=== PATIENT | male | born 1965 | race Caucasian/White ===

== ENCOUNTER 2017-04-09 13:33 | Inpatient (IN) | payer OTHER ==
[2017-04-09] MEDS ORDERED: ACETAMINOPHEN 500 MG TABLET (FP) PO ONE (14:45)
[2017-04-09] MEDS ORDERED: ACETAMINOPHEN 325 MG TABLET (FP) ONE ×2 (14:53→21:08)
[2017-04-09 15:06] LABS: URINE APPEARANCE SLCLOUDY; URINE BILIRUBIN NEGATIVE (NEGATIVE); URINE BLOOD 2+ (NEGATIVE); URINE COLOR YELLOW; URINE GLUCOSE (UA) NEGATIVE (NEGATIVE); URINE KETONE NEGATIVE (NEGATIVE); URINE NITRITE NEGATIVE (NEGATIVE); URINE PROTEIN NEGATIVE (NEGATIVE)
[2017-04-09 15:12] LABS: URINE MUCUS RARE; URINE RBC 6 /hpf (0-3); URINE WBC 36 /hpf (3-5)
[2017-04-09] MEDS ORDERED: SODIUM CHLORIDE 1,000 ML IV STA ×2 (16:09→17:41)
--- NOTE | 2017-04-09 16:22 | PDOC ---
History of Present Illness - General Chief Complaint: Pain, Acute Stated Complaint: FEVER, BODY ACHES Time Seen by Provider: 04/09/17 15:58 History Source: Patient - History of Present Illness Timing/Duration: other (yesterday) Associated Symptoms: reports: fever/chills, malaise, weakness. denies: chest pain, cough, nausea/vomiting, shortness of breath Past History - Past Medical History Allergies/Adverse Reactions: Allergies Allergy/AdvReac Type Severity Reaction Status Date / Time No Known Allergies Allergy Verified 04/09/17 13:41 Home Medications: Ambulatory Orders NK [No Known Home Medication] 04/09/17 COPD: No Other medical history: DENIES. - Suicide/Smoking/Psychosocial Hx Smoking History: Never smoked Review of Systems - Review of Systems Constitutional: Yes: Chills, Fever, Malaise Respiratory: No: Cough, Shortness of Breath Cardiac (ROS): No: Chest Pain ABD/GI: No: Nausea, Vomiting : Yes: Dysuria. No: Discharge, Flank Pain, Hematuria, Testicular Swelling, Testicular Pain *Physical Exam - Vital Signs Last Vital Signs Temp Pulse Resp BP Pulse Ox 102.3 F H 103 H 19 136/79 99 04/09/17 13:41 04/09/17 13:41 04/09/17 13:41 04/09/17 13:41 04/09/17 13:41 - Physical Exam Comments: 04/09/17 16:26 Ill soto, diaphoretic male General Appearance: Yes: Appropriately Dressed HEENT: positive: Normal Voice Neck: positive: Supple Respiratory/Chest: positive: Lungs Clear, Normal Breath Sounds, Respiratory Distress Cardiovascular: positive: Regular Rate, S1, S2 Gastrointestinal/Abdominal: positive: Soft. negative: Tender Male Genitalia: negative: testicular tenderness, testicular mass, epididymus tender Rectal Exam: positive: other (? enlarged, tender prostate) Musculoskeletal: negative: CVA Tenderness Integumentary: positive: Dry, Warm Neurologic: positive: Fully Oriented, Alert, Normal Mood/Affect ED Treatment Course - LABORATORY CBC & Chemistry Diagram: 04/09/17 16:11 04/09/17 16:11 - ADDITIONAL ORDERS Additional order review: Laboratory Results 04/09/17 14:50 Urine Color Yellow Urine Appearance Slcloudy Urine pH 5.0 Ur Specific [place] 1.018 Urine Protein Negative Urine Glucose (UA) Negative Urine Ketones Negative Urine Blood 2+ H Urine Nitrite Negative Urine Bilirubin Negative Urine Urobilinogen 2.0 Urine WBC (Auto) 36 Urine RBC (Auto) 6 Ur Epithelial Cells Rare Urine Mucus Rare 04/09/17 15:37 Influenza Types A,B Antigen (SHAAN) - Final Nasopharyngeal Swab - Final - RADIOLOGY Radiology Studies Ordered: Category Date Time Status CHEST PA & LAT [RAD] Stat Radiology 04/09/17 16:10 Ordered - Medications Given in the ED: ED Medications Discontinued Medications Generic Name Dose Route Start Last Admin Trade Name Mar PRN Reason Stop Dose Admin Acetaminophen 1,000 mg 04/09/17 14:45 04/09/17 14:55 Tylenol - PO 04/09/17 14:46 1,000 mg ONCE ONE Administration Medical Decision Making - Medical Decision Making 04/09/17 16:12 51-year-old male denies any past medical history here with malaise with subjective fever or chills, lower back pain with dysuria and possible rectal pain since yesterday. No cough, wheezing, shortness of breath, abdominal pain, change in bowel movements, hematuria, testicular pain/swelling, discharge, nausea or vomiting. No sick contacts or recent travel. See exam ?influenza vs uti/pyelo vs prostatitis, less likely PNA Febrile, tachy, diaphoretic and ill appearing w/ clear chest/lungs, benign abd and n/l genital exam w/ ?enlarged tender prostate on gentle exam c/f ?acute prostatitis -Tylenol -IVF -abx (will get cxs first) -influenza -labs -ua/cx -bld cx -anticipate admission 04/09/17 17:42 Given clinical picture and wbc of 20, will tx and admit for acute prostatitis. I contacted Dr Sterling and made MD aware of admission *DC/Admit/Observation/Transfer Diagnosis at time of Disposition: Acute prostatitis - Discharge Dispostion Condition at time of disposition: Fair Admit: Yes - Referrals - Patient Instructions - Post Discharge Activity
[2017-04-09] MEDS ORDERED: LEVOFLOXACIN 750 MG IVPB 750 MG/150 ML BAG IVPB ONE ×2 (16:30→16:36)
[2017-04-09 17:06] LABS: BASOPHIL 0.3 % (0-2.0); EOSINOPHIL 0.1 % (0-4.5); MCH 30.1 pg (25.7-33.7); MCHC 34.1 g/dl (32.0-35.9); MEAN CELL VOLUME 88.5 fl (80-96); MEAN PLT VOLUME 9.7 fl (7.5-11.1); NEUTROPHILS 85.7 % (42.8-82.8); PLATELET COUNT 188 K/MM3 (134-434); RDW 13.3 % (11.9-15.9); WHITE BLOOD COUNT 20.2 K/mm3 (4.0-10.0)
[2017-04-09 17:33] LABS: URINE LEUK ESTERASE 1+ (NEGATIVE)
[2017-04-09 17:38] LABS: ALBUMIN 3.7 g/dl (3.4-5.0); ANION GAP 11 (8-16); CO2 23 mmol/L (21-32); CREATININE 0.9 mg/dL (0.7-1.3); GLUCOSE,RANDOM 99 mg/dL (74-106); SGOT/AST 22 U/L (15-37)
[2017-04-09 18:14] LABS: ALK PHOS 94 U/L (45-117); SGPT/ALT 60 U/L (12-78); TOT PROT 7.4 g/dl (6.4-8.2)
[2017-04-09] MEDS ORDERED: IBUPROFEN 400 MG TABLET (FP) PO ONE ×2 (18:50→18:51)
--- NOTE | 2017-04-09 20:51 | HP ---
Admitting History and Physical - Primary Care Physician PCP: Alejandrina Sterling - Admission History of Present Illness: 51-year-old male denies any past medical history here with malaise with subjective fever or chills, lower back pain with dysuria and possible rectal pain since yesterday. No cough, wheezing, shortness of breath, abdominal pain, change in bowel movements, hematuria, testicular pain/swelling, discharge, nausea or vomiting. No sick contacts or recent travel. - Smoking History Smoking history: Never smoked Home Medications - Allergies Allergies/Adverse Reactions: Allergies Allergy/AdvReac Type Severity Reaction Status Date / Time No Known Allergies Allergy Verified 04/09/17 13:41 - Home Medications Home Medications: Ambulatory Orders NK [No Known Home Medication] 04/09/17 Physical Examination Vital Signs: Vital Signs Temperature 103.5 F H 04/09/17 18:48 Pulse Rate 87 04/09/17 16:58 Respiratory Rate 18 04/09/17 16:58 Blood Pressure 102/68 04/09/17 16:58 O2 Sat by Pulse Oximetry (%) 99 04/09/17 16:58 Constitutional: Yes: No Distress HENT: Yes: Atraumatic Neck: Yes: Supple Cardiovascular: Yes: Regular Rate and Rhythm Respiratory: Yes: CTA Bilaterally Gastrointestinal: Yes: Normal Bowel Sounds Extremities: Yes: WNL Neurological: Yes: Alert, Oriented Labs: CBC, BMP 04/09/17 16:11 04/09/17 16:11 Problem List - Problems (1) Acute prostatitis Assessment/Plan: iv abx cxs sent id consult Code(s): N41.0 - ACUTE PROSTATITIS Assessment/Plan Laboratory Tests 04/09/17 04/09/17 04/09/17 14:50 15:50 16:11 WBC 20.2 H RBC 4.71 Hgb 14.2 Hct 41.6 MCV 88.5 MCH 30.1 MCHC 34.1 RDW 13.3 Plt Count 188 MPV 9.7 Neutrophils % 85.7 H Lymphocytes % 8.4 Monocytes % 5.5 Eosinophils % 0.1 Basophils % 0.3 Sodium Potassium Chloride Carbon Dioxide Anion Gap BUN Creatinine Creat Clearance w eGFR Random Glucose Lactic Acid 1.1 Calcium Total Bilirubin AST ALT Alkaline Phosphatase Total Protein Albumin Urine Color Yellow Urine Appearance Slcloudy Urine pH 5.0 Ur Specific [place] 1.018 Urine Protein Negative Urine Glucose (UA) Negative Urine Ketones Negative Urine Blood 2+ H Urine Nitrite Negative Urine Bilirubin Negative Urine Urobilinogen 2.0 Ur Leukocyte Esterase 1+ H Urine WBC (Auto) 36 Urine RBC (Auto) 6 Ur Epithelial Cells Rare Urine Mucus Rare 04/09/17 16:11 WBC RBC Hgb Hct MCV MCH MCHC RDW Plt Count MPV Neutrophils % Lymphocytes % Monocytes % Eosinophils % Basophils % Sodium 136 Potassium 3.7 Chloride 102 Carbon Dioxide 23 Anion Gap 11 BUN 13 Creatinine 0.9 Creat Clearance w eGFR > 60 Random Glucose 99 Lactic Acid Calcium 9.0 Total Bilirubin 1.0 AST 22 ALT 60 Alkaline Phosphatase 94 Total Protein 7.4 Albumin 3.7 Urine Color Urine Appearance Urine pH Ur Specific [place] Urine Protein Urine Glucose (UA) Urine Ketones Urine Blood Urine Nitrite Urine Bilirubin Urine Urobilinogen Ur Leukocyte Esterase Urine WBC (Auto) Urine RBC (Auto) Ur Epithelial Cells Urine Mucus Active Medications Generic Name Dose Route Start Last Admin Trade Name Freq PRN Reason Stop Dose Admin Acetaminophen 650 mg 04/09/17 20:47 Tylenol - PO Q6H PRN FEVER OR PAIN Heparin Sodium (Porcine) 5,000 unit 04/09/17 22:00 Heparin - SQ BID [facility]ERMAINE
[2017-04-09] MEDS: ACETAMINOPHEN 325 MG TABLET (FP) PO PRN (21:10)
[2017-04-09] MEDS: HEPARIN NA (PORCINE) 5,000 UNITS/ML 1ML VIAL SQ SCH (23:38)
[2017-04-10 02:02] VITALS: BMI 25.4
[2017-04-10] MEDS: ACETAMINOPHEN 325 MG TABLET (FP) PO PRN ×3 (06:44→18:49)
[2017-04-10 07:39] LABS: BASOPHIL 0.2 % (0-2.0); EOSINOPHIL 0.5 % (0-4.5); MCH 29.8 pg (25.7-33.7); MCHC 33.4 g/dl (32.0-35.9); MEAN CELL VOLUME 89.2 fl (80-96); MEAN PLT VOLUME 9.4 fl (7.5-11.1); NEUTROPHILS 84.8 % (42.8-82.8); PLATELET COUNT 157 K/MM3 (134-434); RDW 13.8 % (11.9-15.9); WHITE BLOOD COUNT 15.3 K/mm3 (4.0-10.0)
[2017-04-10 08:13] LABS: ALBUMIN 2.8 g/dl (3.4-5.0); ALK PHOS 81 U/L (45-117); ANION GAP 6 (8-16); BILIRUBIN,TOTAL 0.8 mg/dL (0.2-1.0); CO2 24 mmol/L (21-32); CREATININE 0.7 mg/dL (0.7-1.3); GLUCOSE,RANDOM 104 mg/dL (74-106); SGOT/AST 17 U/L (15-37); SGPT/ALT 42 U/L (12-78); TOT PROT 6.2 g/dl (6.4-8.2)
[2017-04-10] MEDS ORDERED: FLU VACCINE QUAD 60 MCG/0.5 ML (MDV 17-18) IM ONE (09:00)
[2017-04-10] MEDS: LEVOFLOXACIN 500 MG IVPB 500 MG/100 ML BAG IVPB SCH (09:19)
[2017-04-10] MEDS: HEPARIN NA (PORCINE) 5,000 UNITS/ML 1ML VIAL SQ SCH ×2 (13:11→21:46)
[2017-04-10] MEDS: SODIUM CHLORIDE 1,000 ML IV SCH (13:30)
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
--- NOTE | 2017-04-10 21:18 | PN ---
Progress Note, Physician History of Present Illness: doing well - Current Medication List Current Medications: Active Medications Acetaminophen (Tylenol -) 650 mg PO Q6H PRN PRN Reason: FEVER OR PAIN Last Admin: 04/10/17 18:49 Dose: 650 mg Heparin Sodium (Porcine) (Heparin -) 5,000 unit SQ BID [facility] Last Admin: 04/10/17 13:11 Dose: 5,000 unit Levofloxacin (Levaquin 500 Mg Premixed Ivpb -) 500 mg in 100 mls @ 100 mls/hr IVPB DAILY@0800 [facility] Last Admin: 04/10/17 09:19 Dose: 100 mls/hr Sodium Chloride (Normal Saline -) 1,000 mls @ 75 mls/hr IV ASDIR [facility] Last Admin: 04/10/17 13:30 Dose: 75 mls/hr - Objective Vital Signs: Vital Signs Temperature 101 F H 04/10/17 18:00 Pulse Rate 77 04/10/17 18:00 Respiratory Rate 20 04/10/17 18:00 Blood Pressure 116/50 04/10/17 18:00 O2 Sat by Pulse Oximetry (%) 98 04/10/17 09:00 Constitutional: Yes: No Distress HENT: Yes: Atraumatic Neck: Yes: Supple Cardiovascular: Yes: Regular Rate and Rhythm Respiratory: Yes: CTA Bilaterally Gastrointestinal: Yes: Normal Bowel Sounds Extremities: Yes: WNL Neurological: Yes: Alert, Oriented Labs: CBC, BMP 04/10/17 06:00 04/10/17 06:00 Problem List - Problems (1) Acute prostatitis Assessment/Plan: iv abx cxs sent id consult awaiting urology consult Code(s): N41.0 - ACUTE PROSTATITIS
[2017-04-11] MEDS: SODIUM CHLORIDE 1,000 ML IV SCH ×2 (08:17→22:17)
[2017-04-11] MEDS: LEVOFLOXACIN 500 MG IVPB 500 MG/100 ML BAG IVPB SCH (08:25)
[2017-04-11] MEDS: HEPARIN NA (PORCINE) 5,000 UNITS/ML 1ML VIAL SQ SCH ×2 (10:57→22:17)
[2017-04-11] MEDS ORDERED: CEFTRIAXONE 1 GM/50 ML BAG IVPB SCH (12:00)
--- NOTE | 2017-04-11 13:34 | PN ---
Progress Note (short form) - Note Progress Note: UROLOGY NOTES. PT. WITH FEVER,CHILLS AND DYSURIA. PROSTATE-FIRM/TENDER/ NODULAR.SUGG. RENAL/PELVIC SONO/PSA. WILL F/U OP.
--- NOTE | 2017-04-11 14:35 | PN ---
Progress Note, Physician History of Present Illness: Pt states he is feeling better. Denies chills or lower abd pain. Temp 101F last night, currently 99.9F. - Current Medication List Current Medications: Active Medications Acetaminophen (Tylenol -) 650 mg PO Q6H PRN PRN Reason: FEVER OR PAIN Last Admin: 04/10/17 18:49 Dose: 650 mg Heparin Sodium (Porcine) (Heparin -) 5,000 unit SQ BID [facility] Last Admin: 04/11/17 10:57 Dose: 5,000 unit Sodium Chloride (Normal Saline -) 1,000 mls @ 75 mls/hr IV ASDIR [facility] Last Admin: 04/11/17 08:17 Dose: 75 mls/hr CEFTRIAXONE 1 G/50 ML PREMIX (Ceftriaxone 1 Gm-D5w Bag) 50 mls @ 100 mls/hr IVPB DAILY [facility] - Objective Vital Signs: Vital Signs Temperature 99.9 F H 04/11/17 09:46 Pulse Rate 80 04/11/17 09:46 Respiratory Rate 16 04/11/17 09:46 Blood Pressure 126/68 04/11/17 09:46 O2 Sat by Pulse Oximetry (%) 98 04/11/17 09:00 Constitutional: Yes: No Distress, Calm Neck: Yes: Supple Cardiovascular: Yes: Regular Rate and Rhythm Respiratory: Yes: CTA Bilaterally Gastrointestinal: Yes: Normal Bowel Sounds, Soft, Tenderness (slight suprapubic tenderness with deep palpation) Genitourinary: Yes: WNL Musculoskeletal: Yes: WNL Extremities: Yes: WNL Edema: No Integumentary: Yes: WNL Neurological: Yes: Alert, Oriented Labs: CBC, BMP 04/10/17 06:00 04/10/17 06:00 Microbiology 04/09/17 14:50 Urine - Urine Clean Catch Urine Culture - Final Escherichia Coli 04/09/17 16:11 Blood - Peripheral Venous Blood Culture - Preliminary NO GROWTH OBTAINED AFTER 24 HOURS, INCUBATION TO CONTINUE FOR 4 DAYS. 04/09/17 16:11 Blood - Peripheral Venous Blood Culture - Preliminary NO GROWTH OBTAINED AFTER 24 HOURS, INCUBATION TO CONTINUE FOR 4 DAYS. 04/09/17 15:37 Nasopharyngeal Swab Influenza Types A,B Antigen (SHAAN) - Final 04/09/17 15:37 Nasopharyngeal Swab - Final Problem List - Problems (1) Acute prostatitis Code(s): N41.0 - ACUTE PROSTATITIS Assessment/Plan 51 y.o. male presenting with fever/chills and dysuria. tender prostate, low back pain. Likely acute prostatitis. E. coli resistant to levaquin in Urine culture, Blood cultures no growth so far -- still with fever but wbc decreased from yesterday -- d/c Levaquin, will start Ceftriaxone for now -- repeat cbc, monitor temps -- blood cultures pending -- f/u chlamydia/gonorrhea testing -- renal/ pelvic sonogram recommended
--- NOTE | 2017-04-11 16:09 | CONS ---
DATE OF CONSULTATION: DATE OF DICTATION: 04/11/2017 The patient is a 51-year-old male admitted via the emergency room with fever, chills, dysuria, frequency, for the past several days. Fever has increased in severity. Patient does have history of testicular pain. He denies any alcohol or ethanolism. He denies any allergies. He does not take any medications. He denies any allergies. He does not take any medications. In the emergency room, his temperature was 103.5, blood pressure 102/68, O2 saturation is 99. Patient's abdomen was soft. There was mild bilateral CVA tenderness. Genitalia were atraumatic, testes are nontender. No hernias or hydroceles are elicited. Prostate was 3+, firm, with a nodule at the right base. Tenderness was also elicited on superficial palpation. His white count is 20,200, hemoglobin 14.2, hematocrit 41.6, platelets 188. BUN 13 and creatinine 0.9, random glucose was 99. Impression at present is acute prostatitis with history of prostatism and an abnormal digital rectal exam. Would recommend a renal and pelvic ultrasound. Would also recommend a PSA, both free and total. Would continue with antibiotics as per Infectious Disease. The patient will need a workup including a cystoscopy and a transrectal ultrasound with possible biopsy when he is medically cleared as an outpatient procedure. KG SÁNCHEZ M.D. [id number]
--- NOTE | 2017-04-11 19:14 | PN ---
Progress Note, Physician - Current Medication List Current Medications: Active Medications Acetaminophen (Tylenol -) 650 mg PO Q6H PRN PRN Reason: FEVER OR PAIN Last Admin: 04/10/17 18:49 Dose: 650 mg Heparin Sodium (Porcine) (Heparin -) 5,000 unit SQ BID [facility] Last Admin: 04/11/17 10:57 Dose: 5,000 unit Sodium Chloride (Normal Saline -) 1,000 mls @ 75 mls/hr IV ASDIR [facility] Last Admin: 04/11/17 08:17 Dose: 75 mls/hr CEFTRIAXONE 1 G/50 ML PREMIX (Ceftriaxone 1 Gm-D5w Bag) 50 mls @ 100 mls/hr IVPB DAILY [facility] - Objective Vital Signs: Vital Signs Temperature 100.9 F H 04/11/17 18:00 Pulse Rate 74 04/11/17 18:00 Respiratory Rate 18 04/11/17 18:00 Blood Pressure 121/72 04/11/17 18:00 O2 Sat by Pulse Oximetry (%) 98 04/11/17 09:00 Constitutional: Yes: No Distress HENT: Yes: Atraumatic Neck: Yes: Supple Cardiovascular: Yes: Regular Rate and Rhythm Respiratory: Yes: CTA Bilaterally Extremities: Yes: WNL Neurological: Yes: Alert, Oriented Labs: CBC, BMP 04/10/17 06:00 04/10/17 06:00 Problem List - Problems (1) Acute prostatitis Assessment/Plan: iv abx cxs sent id consult awaiting urology consult Code(s): N41.0 - ACUTE PROSTATITIS
[2017-04-11] MEDS: ACETAMINOPHEN 325 MG TABLET (FP) PO PRN (19:43)
[2017-04-12 07:01] LABS: BASOPHIL 1.2 % (0-2.0); EOSINOPHIL 2.1 % (0-4.5); MCH 29.8 pg (25.7-33.7); MCHC 33.6 g/dl (32.0-35.9); MEAN CELL VOLUME 88.7 fl (80-96); MEAN PLT VOLUME 9.4 fl (7.5-11.1); PLATELET COUNT 181 K/MM3 (134-434); RDW 13.6 % (11.9-15.9); WHITE BLOOD COUNT 4.5 K/mm3 (4.0-10.0)
[2017-04-12 07:51] LABS: ALBUMIN 2.7 g/dl (3.4-5.0); ALK PHOS 83 U/L (45-117); ANION GAP 6 (8-16); BILIRUBIN,TOTAL 0.3 mg/dL (0.2-1.0); CALCIUM 7.6 mg/dL (8.5-10.1); CO2 26 mmol/L (21-32); CREATININE 0.8 mg/dL (0.7-1.3); GLUCOSE,RANDOM 101 mg/dL (74-106); SGOT/AST 45 U/L (15-37); SGPT/ALT 65 U/L (12-78); TOT PROT 6.1 g/dl (6.4-8.2)
[2017-04-12] MEDS: CEFTRIAXONE 1 G/50 ML PREMIX 50 ML IVPB SCH (10:34)
[2017-04-12] MEDS: HEPARIN NA (PORCINE) 5,000 UNITS/ML 1ML VIAL SQ SCH ×2 (10:35→21:11)
[2017-04-12] MEDS: SODIUM CHLORIDE 1,000 ML IV SCH ×2 (10:40→22:31)
--- NOTE | 2017-04-12 13:27 | PN ---
Progress Note, Physician History of Present Illness: Pt is feeling better. Less dysuria. No back pain. Tmax 100.9F last night, afebrile so far today. No new complaints. - Current Medication List Current Medications: Active Medications Acetaminophen (Tylenol -) 650 mg PO Q6H PRN PRN Reason: FEVER OR PAIN Last Admin: 04/11/17 19:43 Dose: 650 mg Heparin Sodium (Porcine) (Heparin -) 5,000 unit SQ BID [facility] Last Admin: 04/12/17 10:35 Dose: 5,000 unit Sodium Chloride (Normal Saline -) 1,000 mls @ 75 mls/hr IV ASDIR [facility] Last Admin: 04/12/17 10:40 Dose: 75 mls/hr CEFTRIAXONE 1 G/50 ML PREMIX (Ceftriaxone 1 Gm-D5w Bag) 50 mls @ 100 mls/hr IVPB DAILY [facility] Last Admin: 04/12/17 10:34 Dose: 100 mls/hr - Objective Vital Signs: Vital Signs Temperature 98.6 F 04/12/17 09:00 Pulse Rate 73 04/12/17 09:00 Respiratory Rate 18 04/12/17 09:00 Blood Pressure 121/81 04/12/17 09:00 O2 Sat by Pulse Oximetry (%) 99 04/12/17 08:30 Constitutional: Yes: No Distress Neck: Yes: Supple Cardiovascular: Yes: Regular Rate and Rhythm Respiratory: Yes: CTA Bilaterally Gastrointestinal: Yes: Normal Bowel Sounds, Soft Genitourinary: Yes: Other (less dysuria) Extremities: Yes: WNL Integumentary: Yes: WNL Neurological: Yes: Alert, Oriented Labs: CBC, BMP 04/12/17 06:00 04/12/17 06:00 Microbiology 04/09/17 16:11 Blood - Peripheral Venous Blood Culture - Preliminary NO GROWTH OBTAINED AFTER 48 HOURS, INCUBATION TO CONTINUE FOR 3 DAYS. 04/09/17 16:11 Blood - Peripheral Venous Blood Culture - Preliminary NO GROWTH OBTAINED AFTER 48 HOURS, INCUBATION TO CONTINUE FOR 3 DAYS. 04/09/17 14:50 Urine - Urine Clean Catch Urine Culture - Final Escherichia Coli 04/09/17 15:37 Nasopharyngeal Swab Influenza Types A,B Antigen (SHAAN) - Final 04/09/17 15:37 Nasopharyngeal Swab - Final Problem List - Problems (1) Acute prostatitis Code(s): N41.0 - ACUTE PROSTATITIS (2) E. coli UTI Code(s): N39.0 - URINARY TRACT INFECTION, SITE NOT SPECIFIED; B96.20 - UNSP ESCHERICHIA COLI THE CAUSE OF DISEASES CLASSD [id number] (3) Leukocytosis Code(s): D72.829 - ELEVATED WHITE BLOOD CELL COUNT, UNSPECIFIED (4) Fever Code(s): R50.9 - FEVER, UNSPECIFIED Assessment/Plan E. coli UTI/ enlarged prostate, r/o prostatitis -leukocytosis resolved, low grade fever last nigh - cont ceftriaxone for now - PSA ordered but expect to be high in setting of acute prostatitis - urology f/u
--- NOTE | 2017-04-12 19:20 | PN ---
Progress Note, Physician History of Present Illness: doing well - Current Medication List Current Medications: Active Medications Acetaminophen (Tylenol -) 650 mg PO Q6H PRN PRN Reason: FEVER OR PAIN Last Admin: 04/11/17 19:43 Dose: 650 mg Heparin Sodium (Porcine) (Heparin -) 5,000 unit SQ BID [facility] Last Admin: 04/12/17 10:35 Dose: 5,000 unit Sodium Chloride (Normal Saline -) 1,000 mls @ 75 mls/hr IV ASDIR [facility] Last Admin: 04/12/17 10:40 Dose: 75 mls/hr CEFTRIAXONE 1 G/50 ML PREMIX (Ceftriaxone 1 Gm-D5w Bag) 50 mls @ 100 mls/hr IVPB DAILY [facility] Last Admin: 04/12/17 10:34 Dose: 100 mls/hr - Objective Vital Signs: Vital Signs Temperature 98.4 F 04/12/17 18:00 Pulse Rate 59 L 04/12/17 18:00 Respiratory Rate 20 04/12/17 18:00 Blood Pressure 119/78 04/12/17 18:00 O2 Sat by Pulse Oximetry (%) 99 04/12/17 08:30 HENT: Yes: Atraumatic Neck: Yes: Supple Cardiovascular: Yes: Regular Rate and Rhythm Respiratory: Yes: CTA Bilaterally Gastrointestinal: Yes: Normal Bowel Sounds Extremities: Yes: WNL Neurological: Yes: Alert, Oriented Labs: CBC, BMP 04/12/17 06:00 04/12/17 06:00 Problem List - Problems (1) Acute prostatitis Assessment/Plan: iv abx cxs sent id consult Code(s): N41.0 - ACUTE PROSTATITIS
[2017-04-13] MEDS: HEPARIN NA (PORCINE) 5,000 UNITS/ML 1ML VIAL SQ SCH (09:50)
[2017-04-13] MEDS: CEFTRIAXONE 1 G/50 ML PREMIX 50 ML IVPB SCH (09:50)
[2017-04-13] MEDS: ACETAMINOPHEN 325 MG TABLET (FP) PO PRN (09:51)
[2017-04-13] MEDS: SODIUM CHLORIDE 1,000 ML IV SCH (13:54)
--- NOTE | 2017-04-13 15:59 | PN ---
Progress Note, Physician History of Present Illness: Pt has been afebrile, without chills or dysuria. No back pain. Has mild headache but no other specific complaints. - Current Medication List Current Medications: Active Medications Acetaminophen (Tylenol -) 650 mg PO Q6H PRN PRN Reason: FEVER OR PAIN Last Admin: 04/13/17 09:51 Dose: 650 mg Heparin Sodium (Porcine) (Heparin -) 5,000 unit SQ BID [facility] Last Admin: 04/13/17 09:50 Dose: Not Given Sodium Chloride (Normal Saline -) 1,000 mls @ 75 mls/hr IV ASDIR JERMAINE Last Admin: 04/13/17 13:54 Dose: Not Given CEFTRIAXONE 1 G/50 ML PREMIX (Ceftriaxone 1 Gm-D5w Bag) 50 mls @ 100 mls/hr IVPB DAILY [facility] Last Admin: 04/13/17 09:50 Dose: 100 mls/hr - Objective Vital Signs: Vital Signs Temperature 98 F 04/13/17 13:49 Pulse Rate 58 L 04/13/17 13:49 Respiratory Rate 20 04/13/17 13:49 Blood Pressure 121/68 04/13/17 13:49 O2 Sat by Pulse Oximetry (%) 99 04/13/17 09:00 Constitutional: Yes: No Distress, Calm Cardiovascular: Yes: Regular Rate and Rhythm Respiratory: Yes: CTA Bilaterally Gastrointestinal: Yes: Normal Bowel Sounds, Soft Genitourinary: Yes: WNL Musculoskeletal: Yes: WNL Extremities: Yes: WNL Edema: No Neurological: Yes: Alert Labs: CBC, BMP 04/12/17 06:00 04/12/17 06:00 Laboratory Last Values WBC 4.5 K/mm3 (4.0-10.0) D 04/12/17 06:00 RBC 4.43 M/mm3 (4.00-5.60) 04/12/17 06:00 Hgb 13.2 GM/dL (11.7-16.9) 04/12/17 06:00 Hct 39.3 % (35.4-49) 04/12/17 06:00 MCV 88.7 fl (80-96) 04/12/17 06:00 MCH 29.8 pg (25.7-33.7) 04/12/17 06:00 MCHC 33.6 g/dl (32.0-35.9) 04/12/17 06:00 RDW 13.6 % (11.9-15.9) 04/12/17 06:00 Plt Count 181 K/MM3 (134-434) 04/12/17 06:00 MPV 9.4 fl (7.5-11.1) 04/12/17 06:00 Neutrophils % 48.0 % (42.8-82.8) D 04/12/17 06:00 Lymphocytes % 32.0 % (8-40) D 04/12/17 06:00 Monocytes % 16.7 % (3.8-10.2) H D 04/12/17 06:00 Eosinophils % 2.1 % (0-4.5) D 04/12/17 06:00 Basophils % 1.2 % (0-2.0) D 04/12/17 06:00 Sodium 139 mmol/L (136-145) 04/12/17 06:00 Potassium 3.6 mmol/L (3.5-5.1) 04/12/17 06:00 Chloride 107 mmol/L (98-107) 04/12/17 06:00 Carbon Dioxide 26 mmol/L (21-32) 04/12/17 06:00 Anion Gap 6 (8-16) L 04/12/17 06:00 BUN 8 mg/dL (7-18) D 04/12/17 06:00 Creatinine 0.8 mg/dL (0.7-1.3) 04/12/17 06:00 Creat Clearance w eGFR > 60 (>60) 04/12/17 06:00 Random Glucose 101 mg/dL (74-106) 04/12/17 06:00 Lactic Acid 1.1 mmol/L (0.4-2.0) 04/09/17 15:50 Calcium 7.6 mg/dL (8.5-10.1) L 04/12/17 06:00 Total Bilirubin 0.3 mg/dL (0.2-1.0) D 04/12/17 06:00 AST 45 U/L (15-37) H D 04/12/17 06:00 ALT 65 U/L (12-78) D 04/12/17 06:00 Alkaline Phosphatase 83 U/L (45-117) 04/12/17 06:00 Total Protein 6.1 g/dl (6.4-8.2) L 04/12/17 06:00 Albumin 2.7 g/dl (3.4-5.0) L 04/12/17 06:00 Prostate Specific Ag 26.30 ng/ml (0.0-4.0) H 04/12/17 06:00 Urine Color Yellow 04/09/17 14:50 Urine Appearance Slcloudy 04/09/17 14:50 Urine pH 5.0 (5.0-8.0) 04/09/17 14:50 Ur Specific [place] 1.018 (1.001-1.035) 04/09/17 14:50 Urine Protein Negative (NEGATIVE) 04/09/17 14:50 Urine Glucose (UA) Negative (NEGATIVE) 04/09/17 14:50 Urine Ketones Negative (NEGATIVE) 04/09/17 14:50 Urine Blood 2+ (NEGATIVE) H 04/09/17 14:50 Urine Nitrite Negative (NEGATIVE) 04/09/17 14:50 Urine Bilirubin Negative (NEGATIVE) 04/09/17 14:50 Urine Urobilinogen 2.0 mg/dL (0.2-1.0) 04/09/17 14:50 Ur Leukocyte Esterase 1+ (NEGATIVE) H 04/09/17 14:50 Urine WBC (Auto) 36 /hpf (3-5) 04/09/17 14:50 Urine RBC (Auto) 6 /hpf (0-3) 04/09/17 14:50 Ur Epithelial Cells Rare /HPF (FEW) 04/09/17 14:50 Urine Mucus Rare 04/09/17 14:50 C.trachomatis Ampl DNA Negative (Negative) 04/09/17 18:22 N. gonorrhoeae (SAMARA) Negative (Negative) 04/09/17 18:22 Problem List - Problems (1) Acute prostatitis Code(s): N41.0 - ACUTE PROSTATITIS (2) E. coli UTI Code(s): N39.0 - URINARY TRACT INFECTION, SITE NOT SPECIFIED; B96.20 - UNSP ESCHERICHIA COLI THE CAUSE OF DISEASES CLASSD ELSWHR (3) Leukocytosis Code(s): D72.829 - ELEVATED WHITE BLOOD CELL COUNT, UNSPECIFIED (4) Fever Code(s): R50.9 - FEVER, UNSPECIFIED Assessment/Plan E. coli UTI/ enlarged prostate/prostatitis -leukocytosis and fever resolved - cont ceftriaxone for now, plan switch to po - elevated psa, needs urology followup
--- NOTE | 2017-04-13 18:57 | DS ---
Physical Examination Vital Signs: Vital Signs Temperature 98 F 04/13/17 13:49 Pulse Rate 58 L 04/13/17 13:49 Respiratory Rate 20 04/13/17 13:49 Blood Pressure 121/68 04/13/17 13:49 O2 Sat by Pulse Oximetry (%) 99 04/13/17 09:00 Constitutional: Yes: No Distress HENT: Yes: Atraumatic Neck: Yes: Supple Cardiovascular: Yes: Regular Rate and Rhythm Respiratory: Yes: CTA Bilaterally Gastrointestinal: Yes: Normal Bowel Sounds Extremities: Yes: WNL Neurological: Yes: Alert, Oriented Labs: CBC, BMP 04/12/17 06:00 04/12/17 06:00 Discharge Summary Reason For Visit: PAROXYSMAL ATTRIAL FIBRILLATION Current Active Problems Acute prostatitis (Acute) E. coli UTI (Acute) Fever (Acute) Leukocytosis (Acute) Condition: Fair - Instructions Diet, Activity, Other Instructions: NEED TO SEE UROLOGY AND ID OUT PT IN 1 WEEK Referrals: Alejandrina Sterling MD [Staff Physician] - Calvin Dimas MD [Staff Physician] - Analia Sainz MD [Staff Physician] - - Home Medications Comprehensive Discharge Medication List: Ambulatory Orders No Home Medications 0 dose .ROUTE UTDICT 10/30/13 Sulfamethoxazole/Trimethoprim [Bactrim Ds -] 1 tab PO BID #60 tablet 04/13/17 DC ON PO BACTRIM TOTAL 6 WEEKS D/W ID FU ID AND UROLOGY OUT PT
[2017-04-13 19:31] VITALS: BP 134/75; PULSE 57; TEMP 98.4
== END 2017-04-13 20:21 | disposition home or self-care (01) | DRG 501 ==
LOC: JER 13:33 → JERBED 17:17 → J7W 22:18
PROVIDERS: ADMIT Internal Medicine; ATTEND Internal Medicine
DX: N41.0 Acute prostatitis (principal); I48.0 Paroxysmal atrial fibrillation; N39.0 Urinary tract infection, site not specified; B96.20 Unspecified Escherichia coli [E. coli] as the cause of diseases classified elsewhere; D72.829 Elevated white blood cell count, unspecified; R50.9 Fever, unspecified
CPT/HCPCS: 36415; 71020-TC; 76856-TC; 80053; 81003; 81015; 83605; 84153; 85025; 87040; 87086; 87186; 87491; 87591; 87804; 99285-25; J1644